=== PATIENT | female | born 1985 | race Caucasian/White ===

== ENCOUNTER 2017-01-26 11:34 | Emergency (ER) | payer MEDICAID, SELFPAY ==
[2017-01-26] MEDS ORDERED: Azithromycin 250 MG TAB ONE (12:14)
[2017-01-26] MEDS ORDERED: predniSONE 20 MG TAB ONE (12:14)
== END 2017-01-26 13:02 | disposition home or self-care (01) ==
LOC: NAV ERS 11:34
DX: J20.9 Acute bronchitis, unspecified (principal); J01.90 Acute sinusitis, unspecified; E11.9 Type 2 diabetes mellitus without complications; I10 Essential (primary) hypertension; E78.01 Familial hypercholesterolemia; J45.909 Unspecified asthma, uncomplicated; Z87.891 Personal history of nicotine dependence
CPT/HCPCS: 99283; J7506

== ENCOUNTER 2017-04-05 12:29 | Emergency (ER) | payer SELFPAY ==
[2017-04-05 12:54] LABS: Bilirubin Negative (Negative); Blood, Urine Negative (Negative); Clarity Clear (Clear); Glucose, Urine (Dipstick) Negative (Negative); Leukocyte Negative (Negative); Nitrite Negative (Negative); Protein, Urine (Dipstick) Negative (Neg-Trace); Urobilinogen 0.2 mg/dL (0.2-1.0); pH, Urine 7.5 (5.0-9.0)
== END 2017-04-05 13:52 | disposition home or self-care (01) ==
LOC: NAV ERS 12:29
DX: J06.9 Acute upper respiratory infection, unspecified (principal); E11.9 Type 2 diabetes mellitus without complications; I10 Essential (primary) hypertension; J45.909 Unspecified asthma, uncomplicated; F43.10 Post-traumatic stress disorder, unspecified; E66.01 Morbid (severe) obesity due to excess calories; Z87.891 Personal history of nicotine dependence
CPT/HCPCS: 81003; 99283

== ENCOUNTER 2017-07-11 20:26 | Emergency (ER) | payer SELFPAY ==
[2017-07-11] MEDS ORDERED: Ibuprofen 200 MG TAB ONE (20:54)
[2017-07-11] MEDS ORDERED: Acetaminophen 500 MG TAB ONE (20:54)
--- NOTE | 2017-07-11 21:39 | RAD ---
RIGHT HAND THREE VIEWS: 07/11/17 HISTORY: 32-year-old female with right hand pain following an injury. Mild degenerative changes are noted. No acute fracture or dislocation. IMPRESSION: Mild degenerative change without acute fracture or dislocation. POS: [facility]
--- NOTE | 2017-07-11 21:46 | RAD ---
LEFT KNEE FOUR VIEWS: 07/11/17 HISTORY: 32-year-old female with history of left knee pain. IMPRESSION: Mild degenerative changes. No acute fracture or dislocation. POS: [facility]
--- NOTE | 2017-07-11 21:47 | RAD ---
LEFT TIBIA AND FIBULA TWO VIEWS: 07/11/17 HISTORY: 32-year-old female with left tibia and fibula pain following an injury. IMPRESSION: No fracture, dislocation, or other significant acute osseous abnormality. POS: [facility]
== END 2017-07-11 21:45 | disposition home or self-care (01) ==
LOC: NAV ERS 20:26
DX: S80.02XA Contusion of left knee, initial encounter (principal); S80.12XA Contusion of left lower leg, initial encounter; S60.041A Contusion of right ring finger without damage to nail, initial encounter; I10 Essential (primary) hypertension; E11.9 Type 2 diabetes mellitus without complications; E78.5 Hyperlipidemia, unspecified; J45.909 Unspecified asthma, uncomplicated; F32.9 Major depressive disorder, single episode, unspecified; E66.01 Morbid (severe) obesity due to excess calories; F43.10 Post-traumatic stress disorder, unspecified; Z87.891 Personal history of nicotine dependence; W01.0XXA Fall on same level from slipping, tripping and stumbling without subsequent striking against object, initial encounter; Y92.009 Unspecified place in unspecified non-institutional (private) residence as the place of occurrence of the external cause

== ENCOUNTER 2018-10-14 23:55 | Emergency (ER) | payer SELFPAY ==
[2018-10-15] MEDS ORDERED: cloNIDine 0.2 MG TAB ONE (00:24)
[2018-10-15] MEDS ORDERED: Ketorolac Tromethamine 60 MG/2 ML VIAL ONE (00:24)
== END 2018-10-15 00:36 | disposition home or self-care (01) ==
LOC: NAV ERS 23:55
DX: S39.011A Strain of muscle, fascia and tendon of abdomen, initial encounter (principal); F43.10 Post-traumatic stress disorder, unspecified; F32.9 Major depressive disorder, single episode, unspecified; Z87.891 Personal history of nicotine dependence; X50.9XXA Other and unspecified overexertion or strenuous movements or postures, initial encounter
CPT/HCPCS: 96372; 99283; J1885

== ENCOUNTER 2019-01-08 02:07 | Emergency (ER) | payer SELFPAY | END 2019-01-08 03:26 | disposition home or self-care (01) | LOC: NAV ERS 02:07 | DX: R11.10 Vomiting, unspecified (principal); G47.30 Sleep apnea, unspecified; E11.9 Type 2 diabetes mellitus without complications; E78.5 Hyperlipidemia, unspecified; I10 Essential (primary) hypertension; J45.909 Unspecified asthma, uncomplicated; E66.01 Morbid (severe) obesity due to excess calories; F32.9 Major depressive disorder, single episode, unspecified; F43.10 Post-traumatic stress disorder, unspecified; F41.9 Anxiety disorder, unspecified; Z87.891 Personal history of nicotine dependence | CPT/HCPCS: 93005 ==

== ENCOUNTER 2019-04-11 15:15 | Emergency (ER) | payer SELFPAY ==
[2019-04-11] MEDS ORDERED: Lorazepam 2 MG/ML VIAL ONE (15:36)
== END 2019-04-11 16:48 | disposition home or self-care (01) ==
LOC: NAV ERS 15:15
DX: F41.9 Anxiety disorder, unspecified (principal); E11.9 Type 2 diabetes mellitus without complications; E78.5 Hyperlipidemia, unspecified; I10 Essential (primary) hypertension; J45.909 Unspecified asthma, uncomplicated; E66.9 Obesity, unspecified; E66.01 Morbid (severe) obesity due to excess calories; F32.9 Major depressive disorder, single episode, unspecified; F43.10 Post-traumatic stress disorder, unspecified; F41.0 Panic disorder [episodic paroxysmal anxiety]
CPT/HCPCS: 93005; 96372; J2060

== ENCOUNTER 2020-01-12 01:09 | Emergency (ER) | payer SELFPAY | END 2020-01-12 02:00 | disposition home or self-care (01) | LOC: NAV ERS 01:09 | DX: S16.1XXA Strain of muscle, fascia and tendon at neck level, initial encounter (principal); S00.03XA Contusion of scalp, initial encounter; S00.83XA Contusion of other part of head, initial encounter; I10 Essential (primary) hypertension; F41.0 Panic disorder [episodic paroxysmal anxiety]; Z87.891 Personal history of nicotine dependence; Z79.899 Other long term (current) drug therapy; W22.8XXA Striking against or struck by other objects, initial encounter | CPT/HCPCS: 99283 ==

== ENCOUNTER 2020-04-16 12:15 | Emergency (ER) | payer SELFPAY ==
[2020-04-16] MEDS ORDERED: Ketorolac Tromethamine 60 MG/2 ML VIAL ONE (13:05)
== END 2020-04-16 13:20 | disposition home or self-care (01) ==
LOC: NAV ERS 12:15
DX: K02.9 Dental caries, unspecified (principal); K04.7 Periapical abscess without sinus; K03.81 Cracked tooth; I10 Essential (primary) hypertension; J45.909 Unspecified asthma, uncomplicated; G47.30 Sleep apnea, unspecified; Z87.891 Personal history of nicotine dependence; Z79.899 Other long term (current) drug therapy
CPT/HCPCS: J1885

== ENCOUNTER 2020-11-17 21:41 | Emergency (ER) | payer MEDICAID, SELFPAY ==
[2020-11-17] MEDS ORDERED: Lidocaine 4% Cream 5 GM TUBE w/ Tegaderm ONE (22:01)
[2020-11-17] MEDS ORDERED: Sulfameth/Trimethoprim DS 800-160mg TAB ONE (22:41)
[2020-11-17] MEDS ORDERED: Cephalexin 250 MG CAP ONE (22:41)
== END 2020-11-17 22:56 | disposition home or self-care (01) ==
LOC: NAV ERS 21:41
DX: N61.0 Mastitis without abscess (principal); I10 Essential (primary) hypertension; Z87.891 Personal history of nicotine dependence; Z79.899 Other long term (current) drug therapy

== ENCOUNTER 2021-02-21 10:35 | Emergency (ER) | payer MEDICAID, SELFPAY ==
[2021-02-21] MEDS ORDERED: Sulfameth/Trimethoprim DS 800-160mg TAB ONE (11:25)
== END 2021-02-21 11:32 | disposition home or self-care (01) ==
LOC: NAV ERS 10:35
DX: J18.9 Pneumonia, unspecified organism (principal); R51.9 Headache, unspecified; I10 Essential (primary) hypertension; E66.9 Obesity, unspecified; Z79.82 Long term (current) use of aspirin; Z79.899 Other long term (current) drug therapy
CPT/HCPCS: 99284

== ENCOUNTER 2021-03-26 20:24 | Emergency (ER) | payer SELFPAY ==
[2021-03-26] MEDS ORDERED: traMADol HCl 50 MG TAB ONE (20:56)
[2021-03-26] MEDS ORDERED: Ketorolac Tromethamine 60 MG/2 ML VIAL ONE (20:57)
[2021-03-26] MEDS ORDERED: Cephalexin 250 MG CAP ONE (20:57)
== END 2021-03-26 21:15 | disposition home or self-care (01) ==
LOC: NAV ERS 20:24
DX: K02.9 Dental caries, unspecified (principal); I10 Essential (primary) hypertension; J45.909 Unspecified asthma, uncomplicated; G47.30 Sleep apnea, unspecified; E66.9 Obesity, unspecified; Z87.891 Personal history of nicotine dependence; Z79.82 Long term (current) use of aspirin; Z79.899 Other long term (current) drug therapy
CPT/HCPCS: 96372; 99283; J1885

== ENCOUNTER 2022-02-24 10:46 | Emergency (ER) | payer SELFPAY ==
[2022-02-24] MEDS ORDERED: Amoxicillin/Potassium Clav 875 MG TAB ONE (11:33)
[2022-02-24] MEDS ORDERED: Ketorolac Tromethamine 60 MG/2 ML VIAL ONE (11:33)
== END 2022-02-24 11:46 | disposition home or self-care (01) ==
LOC: NAV ERS 10:46
DX: K04.7 Periapical abscess without sinus (principal); K02.9 Dental caries, unspecified; K03.81 Cracked tooth; E66.9 Obesity, unspecified; I10 Essential (primary) hypertension; Z87.891 Personal history of nicotine dependence; Z79.899 Other long term (current) drug therapy
CPT/HCPCS: 96372; 99283; J1885

== ENCOUNTER 2022-04-07 15:23 | Emergency (ER) | payer SELFPAY ==
[2022-04-07] MEDS ORDERED: HYDROcodone/Acetaminophen 10/325 mg Tablet ONE (15:55)
[2022-04-07] MEDS ORDERED: Ketorolac Tromethamine 60 MG/2 ML VIAL ONE (15:55)
[2022-04-07] MEDS ORDERED: Dexamethasone 20 MG/5 ML VIAL ONE (15:55)
[2022-04-07 16:02] LABS: #Basophils 0.1 thou/uL (0.0-0.2); #Eosinphils 0.3 thou/uL (0.0-0.7); #Lymphocytes 3.4 thou/uL (1.20-3.40); #Monocytes 0.5 thou/uL (0.11-0.59); #Neutrophils 4.7 thou/uL (1.40-6.50); %Basophils 0.7 % (0.0-1.0); %Eosinophils 2.9 % (0.0-10.0); %Monocytes 5.1 % (0.0-10.0); %Neutrophils 53.3 % (42.0-75.0); Hemoglobin 12.6 g/dL (12.0-16.0); Mean Corpuscular HGB CONC 33.4 g/dL (32.0-36.0); Mean Corpuscular Hemoglobin 30.9 pg (27.0-31.0); Mean Corpuscular Volume 92.5 fl (78.0-98.0); Platelet Count 261 10x3/uL (130-400); RBC Distribution Width 11.3 % (11.5-14.5); Red Blood Cell (RBC) Count 4.06 mill/uL (4.20-5.40); White Blood Cell (WBC) Count 8.8 10x3/uL (4.8-10.8)
[2022-04-07 16:24] LABS: ALT (SGPT) 25 U/L (8-55); AST (SGOT) 17 U/L (5-34); Albumin 3.9 g/dL (3.5-5.0); Alkaline Phosphatase 92 U/L (40-110); Anion Gap 12 mmol/L (10-20); BUN (Urea Nitrogen) 13 mg/dL (7.0-18.7); Bilirubin, Total 0.2 mg/dL (0.2-1.2); CK (CPK) 219 U/L (29-168); Calc. Creatinine Clearance 0 mL/min (70-130); Calcium 9.1 mg/dL (7.8-10.44); Carbon Dioxide 26 mmol/L (22-29); Chloride 105 mmol/L (98-107); Estimated GFR 106; Globulin 2.9 g/dL (2.4-3.5); Glucose 119 mg/dL (70-105); Potassium 3.9 mmol/L (3.5-5.1); Protein, Total 6.8 g/dL (6.0-8.3); Sodium 139 mmol/L (136-145)
== END 2022-04-07 16:43 | disposition home or self-care (01) ==
LOC: NAV ERS 15:23
DX: M65.4 Radial styloid tenosynovitis [de Quervain] (principal); E78.00 Pure hypercholesterolemia, unspecified; E66.9 Obesity, unspecified; E11.9 Type 2 diabetes mellitus without complications; J45.909 Unspecified asthma, uncomplicated; Z87.891 Personal history of nicotine dependence; Z79.899 Other long term (current) drug therapy
CPT/HCPCS: 29125; 80053; 82550; 85025; 96372; J1100; J1885

== ENCOUNTER 2023-12-19 11:24 | Outpatient (CLI) | payer OTHER | END 2023-12-19 11:25 | disposition home or self-care (01) | LOC: NAV RAD 11:24 | PROVIDERS: ATTEND Family Medicine | DX: M54.42 Lumbago with sciatica, left side (principal); M47.816 Spondylosis without myelopathy or radiculopathy, lumbar region; J45.20 Mild intermittent asthma, uncomplicated | CPT/HCPCS: 71046; 72100 ==

== ENCOUNTER 2024-01-01 16:22 | Emergency (ER) | payer MEDICAID | END 2024-01-01 17:42 | disposition home or self-care (01) | LOC: NAV ERS 16:22 | DX: S46.912A Strain of unspecified muscle, fascia and tendon at shoulder and upper arm level, left arm, initial encounter (principal); I10 Essential (primary) hypertension; E11.9 Type 2 diabetes mellitus without complications; E78.00 Pure hypercholesterolemia, unspecified; Z79.899 Other long term (current) drug therapy; W18.2XXA Fall in (into) shower or empty bathtub, initial encounter | CPT/HCPCS: 99283 ==

== ENCOUNTER 2024-11-23 17:02 | Outpatient (CLI) | payer OTHER | END 2024-11-23 17:03 | disposition home or self-care (01) | LOC: NAV RAD 17:02 | PROVIDERS: ATTEND Family Medicine | DX: M47.26 Other spondylosis with radiculopathy, lumbar region (principal); M16.12 Unilateral primary osteoarthritis, left hip | CPT/HCPCS: 72100 ==

== ENCOUNTER 2024-12-08 14:05 | Emergency (ER) | payer OTHER | END 2024-12-08 15:50 | disposition home or self-care (01) | LOC: NAV ERS 14:05 | DX: M25.461 Effusion, right knee (principal); I10 Essential (primary) hypertension; E78.5 Hyperlipidemia, unspecified; E66.9 Obesity, unspecified; E11.9 Type 2 diabetes mellitus without complications; G47.33 Obstructive sleep apnea (adult) (pediatric); J45.909 Unspecified asthma, uncomplicated; Z87.891 Personal history of nicotine dependence; Z79.82 Long term (current) use of aspirin; Z79.85 Long-term (current) use of injectable non-insulin antidiabetic drugs; Z79.51 Long term (current) use of inhaled steroids; Z79.899 Other long term (current) drug therapy | CPT/HCPCS: 99283 ==